=== PATIENT | female | born 1950 | race Caucasian/White ===

== ENCOUNTER 2020-04-05 16:20 | Emergency (ER) | payer MEDICARE, BC ==
[2020-04-05] MEDS ORDERED: Acetaminophen/oxyCODONE 325-5 MG Tab PO STA (17:00)
--- NOTE | 2020-04-05 17:05 | EDM.PDOC ---
ED HPI GENERAL MEDICAL PROBLEM - General Chief Complaint: Abdominal Pain Stated Complaint: ABD PAIN RT SIDE Time Seen by Provider: 04/05/20 16:50 Source of Information: Reports: Patient, Other (CT and US result copies) History Limitations: Reports: Other (minimal records) - History of Present Illness INITIAL COMMENTS - FREE TEXT/NARRATIVE: 69 yo female has been having intermittent RUQ abdominal pain over the past couple of mos. In January she had a normal GB US and in Mar she had a normal CT scan. Today her pain came back about 12:30 pm after having breakfast sandwich with egg and cheese. She has no nausea or fever. No self tx. She still has her gallbladder and appendix. Is visiting from the [facility] [place], but will be here a couple days. Onset: Today, Sudden Onset Date: 04/05/20 Onset Time: 12:30 Duration: Hour(s):, Constant Location: Reports: Abdomen (RUQ) Quality: Reports: Pressure Severity: Moderate Improves with: Reports: None Worsens with: Reports: Other (unknown) Context: Reports: Other (See HPI) Associated Symptoms: Reports: No Other Symptoms. Denies: Fever/Chills, Nausea/Vomiting Treatments RIGGER CHIEF: Reports: Other (see below) (none) - Related Data Allergies Allergy/AdvReac Type Severity Reaction Status Date / Time Penicillins Allergy Hives Verified 04/05/20 16:38 Home Meds: Home Meds Aspirin [Lo-Dose Aspirin EC] 81 mg PO BEDTIME 04/05/20 [History] Ca/D3/Mag Ox/Zinc/Architectural Sales Consultant/Nicolas/Bor [Calcium 600-D3 Plus Caplet] 2 tab PO DAILY 04/05/20 [History] Cholecalciferol (Vitamin D3) [Vitamin D3] 2,000 unit PO DAILY 04/05/20 [History] Cinnamon Bark [Cinnamon] 1 tab PO DAILY 04/05/20 [History] Ezetimibe [Zetia] 10 mg PO BEDTIME 04/05/20 [History] Levothyroxine [Synthroid] 50 mcg PO ACBREAKFAST 04/05/20 [History] Multivitamin 1 tab PO DAILY 04/05/20 [History] Rosuvastatin Calcium [Crestor] 40 mg PO ASDIRECTED 04/05/20 [History] Ubidecarenone [Co Q-10] 100 mg PO DAILY 04/05/20 [History] Vitamin E 400 unit PO DAILY 04/05/20 [History] Past Medical History Cardiovascular History: Reports: High Cholesterol DISPUTE SPECIALIST History: Reports: - Past Surgical History Female Surgical History: Reports: Tubal Ligation Musculoskeletal Surgical History: Reports: Knee Replacement Social & Family History - Tobacco Use Smoking Status *Q: Never Smoker ED ROS GENERAL - Review of Systems Review Of Systems: See Below Constitutional: Reports: No Symptoms HEENT: Reports: No Symptoms Respiratory: Reports: No Symptoms Cardiovascular: Reports: No Symptoms Endocrine: Reports: No Symptoms GI/Abdominal: Reports: No Symptoms : Reports: No Symptoms Musculoskeletal: Reports: No Symptoms Skin: Reports: No Symptoms Neurological: Reports: No Symptoms ED EXAM, GI/ABD - Physical Exam Exam: See Below Exam Limited By: No Limitations General Appearance: Alert, WD/WN, No Apparent Distress, Obese Eyes: Bilateral: Normal Appearance Ears: Normal External Exam, Normal Canal, Hearing Grossly Normal Throat/Mouth: Normal Inspection, Normal Lips, Normal Oropharynx, Normal Voice, No Airway Compromise Head: Atraumatic, Normocephalic Neck: Normal Inspection Respiratory/Chest: No Respiratory Distress, Lungs Clear, Normal Breath Sounds, No Accessory Muscle Use, Chest Non-Tender Cardiovascular: Regular Rate, Rhythm, No Edema GI/Abdominal Exam: Normal Bowel Sounds, Soft, Non-Tender, No Distention Back Exam: Normal Inspection. No: CVA Tenderness (R), CVA Tenderness (L) Extremities: Normal Inspection Neurological: Alert, Oriented, CN II-XII Intact, Normal Cognition, No Motor/Sensory Deficits Psychiatric: Normal Affect, Normal Mood Skin Exam: Warm, Dry, Intact, Normal Color, No Rash Course - Vital Signs Last Recorded V/S: Last Vital Signs Temp 36.8 C 04/05/20 16:44 Pulse 96 04/05/20 16:44 Resp 18 04/05/20 16:44 BP 171/78 H 04/05/20 16:44 Pulse Ox 97 04/05/20 16:44 - Orders/Labs/Meds Labs: Laboratory Tests 04/05/20 04/05/20 04/05/20 Range/Units 16:59 16:59 17:00 WBC 8.9 (4.5-11.0) K/uL RBC 4.50 (3.30-5.50) M/uL Hgb 13.8 (12.0-15.0) g/dL Hct 43.7 (36.0-48.0) % MCV 97 (80-98) fL MCH 31 (27-31) pg MCHC 32 (32-36) % Plt Count 82 L (150-400) K/uL Sodium 139 L (140-148) mmol/L Potassium 4.4 (3.6-5.2) mmol/L Chloride 104 (100-108) mmol/L Carbon Dioxide 26 (21-32) mmol/L Anion Gap 13.4 (5.0-14.0) mmol/L BUN 19 H (7-18) mg/dL Creatinine 1.0 (0.6-1.0) mg/dL Est Cr Clr Drug Dosing 42.68 mL/min Estimated GFR (MDRD) 55 L (>60) Glucose 114 H (74-106) mg/dL Calcium 8.8 (8.5-10.1) mg/dL Total Bilirubin 0.4 (0.2-1.0) mg/dL AST 33 (15-37) U/L ALT 31 (12-78) U/L Alkaline Phosphatase 64 (46-116) U/L C-Reactive Protein 0.06 (0.0-0.3) mg/dL Total Protein 6.8 (6.4-8.2) g/dL Albumin 3.4 (3.4-5.0) g/dL Globulin 3.4 (2.3-3.5) g/dL Albumin/Globulin Ratio 1.0 L (1.2-2.2) Lipase 210 (73-393) U/L Meds: Medications Discontinued Medications Generic Name Dose Route Start Last Admin Trade Name Freq PRN Reason Stop Dose Admin Oxycodone/Acetaminophen 1 tab 04/05/20 17:00 04/05/20 17:08 Percocet 325-5 Mg PO 04/05/20 17:01 1 tab ONETIME STA Administration - Re-Assessments/Exams Free Text/Narrative Re-Assessment/Exam: 04/05/20 18:04 Feeling better after Percocet, wants to go home to [facility] for Hida Scan. Departure - Departure Time of Disposition: 18:05 Disposition: Home, Self-Care 01 Condition: Fair Clinical Impression: RUQ pain, Thrombocytopenia - Discharge Information *PRESCRIPTION DRUG MONITORING PROGRAM REVIEWED*: Not Applicable *COPY OF PRESCRIPTION DRUG MONITORING REPORT IN PATIENT LIZ: Not Applicable Instructions: Abdominal Pain, Adult, [id number] Referrals: PCP,None [Primary Care Provider] - Forms: ED Department Discharge Additional Instructions: Avoid eating fat containing foods in the short run. Use Percocet as needed for pain relief. Suggest follow up soon at home for a possible HIDA scan. Also, your platelet count was low today and this needs further work up soon. Return as needed. Sepsis Event Note (ED) - Evaluation Sepsis Screening Result: No Definite Risk - Focused Exam Vital Signs: Vital Signs Temp Pulse Resp BP Pulse Ox 04/05/20 16:44 36.8 C 96 18 171/78 H 97 04/05/20 16:36 36.8 C 96 18 171/78 H 97
== END 2020-04-05 18:29 | disposition home or self-care (01) ==
LOC: JP.ED 16:20
DX: R10.11 Right upper quadrant pain (principal); D69.6 Thrombocytopenia, unspecified; Z88.0 Allergy status to penicillin
CPT/HCPCS: 36415; 80053; 83690; 85027; 86140; 99284; A9270; 99283

== ENCOUNTER 2023-11-06 07:32 | Day surgery (SDC) | payer MEDICARE, BC ==
[2023-11-06] MEDS ORDERED: fentaNYL 100 MCG/2 ML SDV ONE (08:21)
[2023-11-06] MEDS: Dextrose 5%-Lactated Ringers 1,000 ML IV SCH (08:21)
[2023-11-06] MEDS ORDERED: Propofol 200 MG/20 ML SDV ONE (08:21)
== END 2023-11-06 10:45 | disposition home or self-care (01) ==
LOC: JP.SDS 07:32
PROVIDERS: ATTEND Family Medicine
DX: Z12.11 Encounter for screening for malignant neoplasm of colon (principal); D12.3 Benign neoplasm of transverse colon; J45.909 Unspecified asthma, uncomplicated; G47.33 Obstructive sleep apnea (adult) (pediatric); E03.9 Hypothyroidism, unspecified; E66.9 Obesity, unspecified; Z79.899 Other long term (current) drug therapy; Z79.890 Hormone replacement therapy; Z80.0 Family history of malignant neoplasm of digestive organs; Z88.0 Allergy status to penicillin; Z88.8 Allergy status to other drugs, medicaments and biological substances; Z88.2 Allergy status to sulfonamides; Z68.41 Body mass index [BMI] 40.0-44.9, adult
CPT/HCPCS: 45380; J2704; J3010; J7121; 00811-QZ; 88305

== ENCOUNTER 2024-05-17 22:29 | Emergency (ER) | payer MEDICARE, BC | END 2024-05-18 00:37 | disposition home or self-care (01) | LOC: JP.ED 22:29 | DX: L76.82 Other postprocedural complications of skin and subcutaneous tissue (principal); J45.909 Unspecified asthma, uncomplicated; E78.00 Pure hypercholesterolemia, unspecified; E03.9 Hypothyroidism, unspecified; Z86.16 Personal history of COVID-19; Z90.49 Acquired absence of other specified parts of digestive tract; Z88.0 Allergy status to penicillin; Z88.2 Allergy status to sulfonamides; Z88.8 Allergy status to other drugs, medicaments and biological substances; Z79.82 Long term (current) use of aspirin; Z79.890 Hormone replacement therapy; Z79.51 Long term (current) use of inhaled steroids; Z79.84 Long term (current) use of oral hypoglycemic drugs; Z79.891 Long term (current) use of opiate analgesic; Z79.899 Other long term (current) drug therapy | CPT/HCPCS: 93971-LT; 99283 ==